=== PATIENT | female | born 1985 | race Caucasian/White ===

== ENCOUNTER 2017-09-20 18:15 | Emergency (ER) | payer OTHER ==
[~2017-09-20] VITALS: Ht 160 cm; Wt 85.5 kg
[~2017-09-20 18:15] MED LIST: MELO-216 PO; PANT40TA3 PO; TRAM50TA2 PO
[2017-09-20 18:49] VITALS: Ht 160 cm; Wt 85.5 kg
--- NOTE | 2017-09-20 22:13 | ERD ---
ER Documentation Chief Complaint Chief Complaint R sided abd pain x 2 wks; hx of gallstone removal HPI 32-year-old female presents here in emergency department for complaints of right upper quadrant and right mid abdominal pain that started 2 weeks ago, radiating to the back, worse today. Patient describes the pain as sharp pain, 8 /10 scale, not better or worse with anything. Patient has history of cholecystectomy done one year ago. Patient does not have any fever chills. Patient did not have any nausea or vomiting. ROS All systems reviewed and are negative except as per history of present illness. Medications Home Meds Active Scripts Pantoprazole* (Protonix*) 40 Mg Tablet., 40 MG PO DAILY, #30 TAB Prov:VIPUL CLEANING MD 06/04/16 Reported Medications Tramadol HCl (Tramadol HCl) 50 Mg Tablet, 50 MG PO Q6H Y for PAIN, #120 TAB 05/27/16 Meloxicam* (Meloxicam*) 7.5 Mg Tablet, 7.5 MG PO DAILY, #30 TAB 05/27/16 Allergies Allergies: Coded Allergies: No Known Allergies (Verified Allergy, Unknown, 05/27/16) PMhx/Soc Medical and Surgical Hx: pt denies Medical Hx History of Surgery: No ([facility] 2015) Anesthesia Reaction: No Hx Neurological Disorder: No Hx Respiratory Disorders: No Hx Cardiac Disorders: No Hx Miscellaneous Medical Probl: No Hx Alcohol Use: Yes (occasional, once a month ) Hx Substance Use: No Hx Tobacco Use: No FmHx Family History: No coronary disease, No diabetes, No other Physical Exam Vitals Vital Signs Date Time Temp Pulse Resp B/P Pulse Ox O2 Delivery O2 Flow Rate FiO2 09/20/17 18:49 99.0 65 20 102/59 98 Physical Exam GENERAL: The patient is well developed and appropriate for usual state of health, in no apparent distress. CHEST: Clear to auscultation bilaterally. There are no rales, wheezes or rhonchi. HEART: Regular rate and rhythm. No murmurs, clicks, rubs or gallops. No S3 or S4. ABDOMEN: Soft, nontender and nondistended. Good bowel sounds. No rebound or guarding. No gross peritonitis. No gross organomegaly or masses. No Adorno sign or McBurney point tenderness. BACK: No midline or flank tenderness. EXTREMITIES: Equal pulses bilaterally. There is no peripheral clubbing, cyanosis or edema. No focal swelling or erythema. Full range of motion. Grossly neurovascularly intact. NEURO: Alert and oriented. Cranial nerves 2-12 intact. Motor strength in all 4 extremities with 5/5 strength. Sensation grossly intact. Normal speech and gait. SKIN: There is no apparent rash or petechia. The skin is warm and dry. HEMATOLOGIC AND LYMPHATIC: There is no evidence of excessive bruising or lymphedema. No gross cervical, axillary, or inguinal lymphadenopathy. Result Diagram: 09/20/17223809/20/172238 Results 24 hrs Laboratory Tests Test 09/20/17 22:39 White Blood Count 8.810^3/ul Red Blood Count 4.0110^6/ul Hemoglobin 11.7g/dl Hematocrit 35.5% Mean Corpuscular Volume 88.5fl Mean Corpuscular Hemoglobin 29.2pg Mean Corpuscular Hemoglobin Concent 33.0g/dl Red Cell Distribution Width 13.8% Platelet Count 28433^3/UL Mean Platelet Volume 9.4fl Neutrophils % 61.1% Lymphocytes % 32.8% Monocytes % 5.0% Eosinophils % 0.6% Basophils % 0.3% Nucleated Red Blood Cells % 0.0/100WBC Neutrophils # 5.410^3/ul Lymphocytes # 2.910^3/ul Monocytes # 0.410^3/ul Eosinophils # 0.110^3/ul Basophils # 0.010^3/ul Nucleated Red Blood Cells # 0.010^3/ul Urine Color YELLOW Urine Clarity CLEAR Urine pH 6.0 Urine Specific [place] 1.023 Urine Ketones NEGATIVEmg/dL Urine Nitrite NEGATIVEmg/dL Urine Bilirubin NEGATIVEmg/dL Urine Urobilinogen NEGATIVEmg/dL Urine Leukocyte Esterase TRACELeu/ul Urine Microscopic RBC 4/HPF Urine Microscopic WBC 4/HPF Urine Squamous Epithelial Cells FEW/HPF Urine Mucus FEW/HPF Urine Hemoglobin 1+mg/dL Urine Glucose NEGATIVEmg/dL Urine Total Protein NEGATIVEmg/dl Sodium Level 139mmol/L Potassium Level 4.1mmol/L Chloride Level 105mmol/L Carbon Dioxide Level 25mmol/L Anion Gap 13 Blood Urea Nitrogen 12mg/dl Creatinine 0.59mg/dl Glucose Level 88mg/dl Calcium Level 9.3mg/dl Total Bilirubin 1.0mg/dl Direct Bilirubin 0.00mg/dl Indirect Bilirubin 1.0mg/dl Aspartate Amino Transf (AST/SGOT) 30IU/L Alanine Aminotransferase (ALT/SGPT) 61IU/L Alkaline Phosphatase 70IU/L Total Protein 7.1g/dl Albumin 4.2g/dl Globulin 2.90g/dl Albumin/Globulin Ratio 1.44 Lipase 84U/L PROCEDURE: CT abdomen and pelvis without intravenous contrast. CLINICAL INDICATION: Pain. TECHNIQUE: CT of the abdomen/pelvis was performed utilizing axial images with reconstructions in sagittal and coronal planes. The administered radiation dose is CTDI 19 mGy, DLP 1024 mGy-cm. One or more of the following dose reduction techniques were used: automated exposure control, adjustment of the mA and/or kV according to patient size and/or use of iterative reconstruction technique. DICOM images are available. COMPARISON: No pertinent prior examinations were submitted for comparison. FINDINGS: Visualized Chest: The visualized lung bases are clear. Abdomen: The liver, spleen, pancreas, and adrenal glands are unremarkable. Prior cholecystectomy is noted. There is extension of intrahepatic and hepatic biliary ductal dilatation. Common bile duct measures up to 17 mm in diameter. A stent is noted within the common bile duct, extending into the duodenum. Some density is noted in the distal common bile duct, likely stones. The kidneys are without hydronephrosis. A punctate nonobstructive calculus is noted at the lower pole of the right kidney. There is no evidence of bowel obstruction. The appendix is normal. No intra- abdominal free air is seen. There is no evidence of intra-abdominal adenopathy or free fluid. Pelvis: There is no evidence of pelvic adenopathy. The uterus and ovaries are without enlargement. The urinary bladder is unremarkable. There is no pelvic free fluid. Osseous structures: Unremarkable. IMPRESSION: Cholelithiasis with intrahepatic and extrahepatic biliary ductal dilatation status post placement of a biliary stent. Right nephrolithiasis. RPTAT: HIKT .Kevin Bray MD, MD Date Time Electronically viewed and signed by .Kevin Bray MD, on 09/21/2017 01:06 .T/ CC: LEOBARDO FORDE FRUIT DUMPER PROCEDURE: US Abdomen limited. CLINICAL INDICATION: Abdominal pain. TECHNIQUE: Multiple sonographic images of the right upper quadrant of the abdomen were obtained. COMPARISON: OT 05/29/2016; MR 05/27/2016. FINDINGS: The visualized pancreas, aorta and IVC are unremarkable. The liver measures 16.8 cm in a craniocaudal dimension. There is no evidence of focal hepatic lesion or intrahepatic biliary duct dilatation. The main portal vein is patent with normal antegrade flow. The gallbladder is surgically absent. The common bile duct measures 4.4 mm. The right kidney measures 10.3 cm in length. There is no hydronephrosis or abnormal perinephric fluid collection. IMPRESSION: Cholecystectomy. Otherwise, unremarkable right upper quadrant abdominal ultrasound. RPTAT: HLST .Belle Sharp MD, MD Date Time Electronically viewed and signed by .Belle Sharp MD, MD on 09/20/2017 23:02 .T/ CC: LEOBARDO FORDE FRUIT DUMPER Procedures/MDM Medical Decision Making: This is likely is consistent with biliary colic, most likely needing outpatient ERCP, further evaluation with GI specialist was recommended. No symptoms of pancreatitis, lipase is normal, liver function tests normal. I discussed this case with my attending physician, Dr. Cooper which recommends outpatient management at this time with pain medications. There is low suspicion for abdominal emergencies at this time. Patients abdominal exam is normal at this time. Patients radiology exam does not show any abdominal emergencies at this time. There is low suspicion for appendicitis , cholecystitis, abdominal aortic aneurysms or peritonitis at this time. There is low suspicion for sepsis. Patient appears well and is hemodynamically stable. Disposition: Home. Condition: Stable Prescription [place], Zofran Instructions: Patient is advised to take medications as prescribed. Patient is advised to rest, increase fluid intake and do brat diet for next 1-2 days and progress as tolerated. Patient is advised that if symptoms are worse, severe abdominal pain, uncontrolled vomiting, high fever, severe flank pain, worst signs and symptoms, to return to the emergency department immediately. Otherwise, patient can follow up with primary care doctor in 5-7 days. Disclaimer: Inadvertent spelling and grammatical errors are likely due to EHR/ dictation software use and do not reflect on the overall quality of patient care. Also, please note that the electronic time recorded on this note does not necessarily reflect the actual time of the patient encounter. Departure Diagnosis: Primary Impression: Biliary colic Condition: Stable Patient Instructions: Biliary Colic With Gallstone (Presumed) Additional Instructions: Patient is advised to take medications as prescribed. Patient is advised to rest , increase fluid intake and do brat diet for next 1-2 days and progress as tolerated. Patient is advised that if symptoms are worse, severe abdominal pain , uncontrolled vomiting, high fever, severe flank pain, worst signs and symptoms , to return to the emergency department immediately. Otherwise, patient can follow up with primary care doctor in 5-7 days. LEOBARDO FORDE NP Sep 20, 2017 22:13
[2017-09-20 22:48] LABS: BASOPHILS % 0.3 % (0.0-2.0); EOSINOPHILS # 0.1 10^3/ul (0.0-0.5); EOSINOPHILS % 0.6 % (0.0-7.0); HEMATOCRIT 35.5 % (37.0-47.0); HEMOGLOBIN 11.7 g/dl (12.0-16.0); LYMPHOCYTES # 2.9 10^3/ul (0.8-2.9); LYMPHOCYTES % 32.8 % (15.0-51.0); MEAN CORPUSCULAR HEMOGLOBIN 29.2 pg (29.0-33.0); MEAN CORPUSCULAR VOLUME 88.5 fl (82.0-101.0); MEAN PLATELET VOLUME 9.4 fl (7.4-10.4); MONOCYTE # 0.4 10^3/ul (0.3-0.9); NEUTROPHIL # 5.4 10^3/ul (1.6-7.5); NEUTROPHILS % 61.1 % (39.0-77.0); PLATELET COUNT 361 10^3/UL (140-415); RED BLOOD COUNT 4.01 10^6/ul (4.20-5.40); RED CELL DISTRIBUTION WIDTH 13.8 % (11.5-14.5); WHITE BLOOD COUNT 8.8 10^3/ul (4.8-10.8)
[2017-09-20 22:55] LABS: ADD UMIC YES; UR ASCORBIC ACID NEGATIVE (NEGATIVE); UR BILIRUBIN (Dip) NEGATIVE (NEGATIVE); UR BLOOD (Dip) 1+ mg/dL (NEGATIVE); UR CLARITY CLEAR (CLEAR); UR COLOR YELLOW (YELLOW); UR GLUCOSE (Dip) NEGATIVE (NEGATIVE); UR KETONES (Dip) NEGATIVE (NEGATIVE); UR LEUKOCYTE ESTERASE (Dip) TRACE Leu/ul (NEGATIVE); UR MUCUS FEW /HPF (NONE SEEN); UR NITRITE (Dip) NEGATIVE (NEGATIVE); UR RBC 4 /HPF (0-5); UR SPECIFIC GRAVITY (Dip) 1.023 (1.003-1.030); UR SQUAMOUS EPITHELIAL CELL FEW /HPF (FEW); UR TOTAL PROTEIN (Dip) NEGATIVE (NEGATIVE); UR UROBILINOGEN (Dip) NEGATIVE (NEGATIVE)
--- NOTE | 2017-09-20 23:02 | RADRPT ---
PROCEDURE: US Abdomen limited. CLINICAL INDICATION: Abdominal pain. TECHNIQUE: Multiple sonographic images of the right upper quadrant of the abdomen were obtained. COMPARISON: OT 05/29/2016; MR 05/27/2016. FINDINGS: The visualized pancreas, aorta and IVC are unremarkable. The liver measures 16.8 cm in a craniocaudal dimension. There is no evidence of focal hepatic lesio n or intrahepatic biliary duct dilatation. The main portal vein is patent with normal antegrade nicole w. The gallbladder is surgically absent. The common bile duct measures 4.4 mm. The right kidney measures 10.3 cm in length. There is no hydronephrosis or abnormal perinephric flu id collection. IMPRESSION: Cholecystectomy. Otherwise, unremarkable right upper quadrant abdominal ultrasound. RPTAT: HLST .Belle Sharp MD, Date Time Electronically viewed and signed by .Belle Sharp MD, on 09/20/2017 23:02 .T/
[2017-09-20 23:07] LABS: ALBUMIN 4.2 g/dl (3.3-4.9); ALBUMIN/GLOBULIN RATIO 1.44; CALCIUM 9.3 mg/dl (8.4-10.2); CREATININE 0.59 mg/dl (0.44-1.00); POTASSIUM 4.1 mmol/L (3.5-5.1); TOTAL PROTEIN 7.1 g/dl (6.1-8.1)
--- NOTE | 2017-09-21 01:06 | RADRPT ---
PROCEDURE: CT abdomen and pelvis without intravenous contrast. CLINICAL INDICATION: Pain. TECHNIQUE: CT of the abdomen/pelvis was performed utilizing axial images with reconstructions in s agittal and coronal planes. The administered radiation dose is CTDI 19 mGy, DLP 1024 mGy-cm. One or more of the following dose reduction techniques were used: automated exposure control, adjustment of the mA and/or kV according to patient size and/or use of iterative reconstruction technique. DICOM images are available. COMPARISON: No pertinent prior examinations were submitted for comparison. FINDINGS: Visualized Chest: The visualized lung bases are clear. Abdomen: The liver, spleen, pancreas, and adrenal glands are unremarkable. Prior cholecystectomy is noted. There is extension of intrahepatic and hepatic biliary ductal dilatation. Common bile duct measures up to 17 mm in diameter. A stent is noted within the common bile duct, extending into the duodenum. Some density is noted in the distal common bile duct, likely stones. The kidneys are without hydronephrosis. A punctate nonobstructive calculus is noted at the lower po le of the right kidney. There is no evidence of bowel obstruction. The appendix is normal. No intra-abdominal free air is seen. There is no evidence of intra-abdominal adenopathy or free fluid. Pelvis: There is no evidence of pelvic adenopathy. The uterus and ovaries are without enlargement. The uri nary bladder is unremarkable. There is no pelvic free fluid. Osseous structures: Unremarkable. IMPRESSION: Cholelithiasis with intrahepatic and extrahepatic biliary ductal dilatation status post placement of a biliary stent. Right nephrolithiasis. RPTAT: HIKT .Kevin Bray MD, MD Date Time Electronically viewed and signed by .Kevin Bray MD, on 09/21/2017 01:06 .T/
[2017-09-21] MEDS ORDERED: ONDA4TAB14 PO (01:29)
[2017-09-21] MEDS ORDERED: HYDR-906 PO (01:29)
[2017-09-21 01:34] VITALS: BP 118/59; PULSE 59; RESP 16; TEMP 98.3
== END 2017-09-21 01:40 | disposition home or self-care (01) ==
LOC: FTE 18:15
DX: K80.50 Calculus of bile duct without cholangitis or cholecystitis without obstruction (principal)
CPT/HCPCS: 74176; 76705; 80053; 81001; 83690; 85025; Z7502

== ENCOUNTER 2017-11-04 23:47 | Inpatient (IN) | END 2017-11-06 19:40 | disposition home or self-care (01) | DRG 446 ==

== ENCOUNTER 2018-01-18 05:50 | Day surgery (SDC) | END 2018-01-18 13:34 | disposition home or self-care (01) ==